=== PATIENT | female | born 1955 | race Caucasian/White ===

== ENCOUNTER 2018-12-15 11:22 | Day surgery (SDC) | payer OTHER, SELFPAY ==
[2017-10-22 10:29] VITALS: BMI 29.5
--- NOTE | 2018-12-15 | BRBX_PTH ---
PATIENT: QUINTEN VALDIVIA LOC: [facility] [place] U#:[id number] AGE/SX: 63/F ROOM: RE12/15/[address]: Dr. Ada Wright MD : 1955 BED: DIS: 12/15/2018 SPEC #: [id number] RECD: 12/15/18 14:28 STATUS: ARON AUBREE #: [id number] DENISE: 12/15/18 00:[address]: Ada Wright DEPT: SURGICAL PATHOLOGY RECD BY: Hola Pheonix ENTERED: 12/15/18 14:28 SP TYPE: BREAST BX OTHR DR: Dr. Heather Gdodard MD Tissues: Right breast, NOS Procedures: Surgery Specimen Level V HEADER OPERATION: Right breast biopsy PRE-OP DIAGNOSIS: Atypical ductal hyperplasia right breast TISSUE SUBMITTED: Lower outer breast tissue MICROSCOPIC DIAGNOSIS Right breast, lower outer breast tissue, excisional biopsy: Atypical ductal hyperplasia, 0.25 cm, entirely excised. Granulation tissue and fat necrosis, compatible with previous biopsy site. Background fibrocystic changes encompassing usual ductal hyperplasia, columnar cell alteration, duct ectasia and stromal sclerosis. CE:chidi 12/17/18 COMMENT Case has been reviewed in consultation with Dr. Monroy who concurs with the above diagnosis. IDC:AM MICROSCOPIC DESCRIPTION Slides are reviewed. GROSS DESCRIPTION Received in fixative is one container labeled with the patient's name and designated lower outer right breast tissue. The specimen consists of an irregular fragment of harris-yellow fibrofatty tissue measuring 4.5 x 4 x 2.5 cm and containing a metallic wire. No orientation is provided. The specimen is inked and serially sectioned to reveal homogenous yellow cut surfaces. No mass lesions are identified. The specimen is serially sectioned and totally submitted in six cassettes. / AM:chidi 12/16/18 TC:4 CPT: 27487
--- NOTE | 2018-12-15 10:43 | PCM.HP.BLA ---
History and Physical Date of Admission: 12/15/18 Fela Jones 1955 REFERRING PHYSICIAN: Heather Goddard MD CHIEF COMPLAINT: Mammogram Abnormality HPI: The patient is a 63 year old female presents with abnormal right breast ultrasound Denies palpable breast masses. Denies nipple discharge. Denies previous breast surgeries. US right breast 11/19/18 6 mm oval equal density asymmetry in the right breast at 9:00, 3 cm from nipple, anterior depth, is suspicious of malignancy. An ultrasound guided biopsy is recommended. No breast or ovarian cancer known in family. Denies breast pain. US guided needle core breast biopsy 11/28/18 - focal atypical ductal hyperplasia PAST MEDICAL HISTORY ? BENIGN MARIA LUISA SKIN LEG 09/03/2006 ? BENIGN NEOPLASM LG BOWEL 10/18/2008 ? Benign neoplasm of colon ? CHR SOLAR SKIN DAMAGE NOS 09/03/2006 ? External hemorrhoids without mention of complication ? Internal hemorrhoids without mention of complication ? Irritable bowel syndrome ? Mental disorder anxiety ? Personal history of colonic polyps ? Pyoderma, unspecified 12/09/2006 ? Snoring ? Unspecified asthma(493.90) mild, intermittent PAST SURGICAL HISTORY ? COLONOS W/REM POLYP SNARE 10/18/08 ? COLONOSCOP W/ OR W/O BRSH SPEC 04/24/2017 ? COLONOSCOPY W/BX 03/19/12 ? HYSTEROSCOPY DIAGNOSTIC 10/22/2017 ? PAST SURGICAL HISTORY OF 09/23 mole removed right thigh Dr. Magana Current Outpatient Prescriptions: diazePAM (VALIUM) 5 mg tablet Take 1 tablet by mouth every 6 hours as needed for Sedation (take 1-2 tablets about one hour prior to the procedure) for up to 1 day. lfokjcef-lgdnogkip-emrakidhpxsenp (CORTISPORIN) otic solution Use 3 Drops in both ears three times daily. 3 drops in both ears 4 times a day as needed albuterol HFA (VENTOLIN HFA) 90 mcg/actuation inhaler Inhale 2 Puffs as instructed every 4 hours as needed for Wheezing/Shortness of Breath. multivitamin (DAILY MULTI-VITAMIN) tablet Take 1 tablet by mouth once daily. CALCIUM CARBONATE/VITAMIN D3 (CALCIUM + D ORAL) Take by mouth once daily. aspirin, enteric coated (ASPIRIN LOW DOSE) 81 mg EC tablet Take 81 mg by mouth once daily. ALLERGIES: Patient has no known allergies. PERSONAL HISTORY: Social History Marital status: Spouse name: Arnulfo Years of education: Number of children: 2 Occupational History Occupation Employer [employer] Social History Main Topics Smoking status: Never Smoker Smokeless tobacco: Never Used Alcohol use: No Drug use: No Sexual activity: Yes Partners with: Male Social History Narrative , 2 boys Lives in [facility], second graders FAMILY HISTORY: ? Diabetes Mother diet controlled ? Heart Father ? Heart Brother Brother diagnosed with colon cancer in his mid 50s REVIEW OF SYSTEMS: General: The patient denies fatigue, denies weight loss, NOTES weight gain, denies feeling hot, and denies feelings of cold. Eyes: The patient NOTES glaucoma, denies eye injury/surgery, wears glasses or contacts. Ear/Nose/Throat: The patient NOTES allergies, denies hayfever, NOTES ear infections, and denies bloody noses. Cardiovascular: The patient denies chest pain, denies heart disease, denies high blood pressure,denies cardiac stent, denies prior heart attack, denies irregular heart beat, NOTES high cholesterol, denies poor circulation, denies heart failure, other cardiac issues, denies claudication, denies cold feet, denies peripheral arterial stent. Respiratory: The patient denies tuberculosis, denies pneumonia, denies frequent cough, denies pulmonary embolism, denies shortness of breath, and denies coughing up blood. Gastrointestinal: had colonoscopy 04/24/17 for family history of colon cancer - tubular adenomas x 2 - needs colonoscopy in 5 y, denies blood in stools Kidney/Bladder: The patient NOTES kidney stones, denies urine infections, and denies bloody urine. Skin: The patient denies a history of skin cancer, denies bleeding/changing moles, and denies a history of skin rash. Neurologic: The patient denies a history of epilepsy/convulsions, denies headaches, denies head/spinal injuries, and denies stroke/TIA. Psychiatric: The patient denies psychiatric medications, denies depression, and denies voices, denies substance abuse. Endocrine: The patient denies thyroid disorders, denies diabetes, and denies hormonal problems. Hematologic: The patient denies a history of bruising, denies bleeding, and denies anemia, denies blood clots. Infections: The patient denies a history of measles and mumps, denies rheumatic fever, and denies sexually transmitted diseases. Musculoskeletal: The patient denies back pain/injury, denies back problems, denies sciatica, denies knee/foot trouble, denies arthritis, or denies gout. Obstetrical: menarche age 13, , first age 31, breast feeding 1 year, BCP use initially age 28 for 2 1/2 y, menopause age 52 PHYSICAL EXAMINATION: General: The patient is 63 year old female, well nourished, well hydrated in no acute distress. The patient is oriented to time, place, and person. VITALS: Blood pressure 148/82, pulse 84, weight 77.1 kg (170 lb). Body mass index is 28.73 kg/m?. Head ? Normocephalic. EOM intact with sclera clear and no icterus noted. Wearing glasses. Mouth with mucus membranes moist. Neck - supple with no jugular venous distention noted. Trachea is midline. No carotid bruits noted. No thyroid enlargement or thyroid nodules detected. No masses noted. Chest/breast ? no asymmetry of breasts noted, no suspicious skin lesions noted, no nipple discharge and both nipples everted, no breast masses noted, nodular, dense breast tissue palpated bilaterally, no suspicious lesions palpated Lungs ? clear to auscultation. Normal breath sounds. No rales/rhonchi/wheezing noted. No labored breathing noted, such as retractions. Heart ? normal S1 and S2 auscultated. No rubs/clicks/murmurs noted. Regular rate. Abdomen ? soft and benign. Normal bowel sounds. No abdominal bruits noted. No distention or tympany noted. No masses noted. Extremities ? no calf tenderness noted. No pitting edema noted. Skin ? normal skin integrity. Lymph ? no cervical adenopathy detected, no supraclavicular adenopathy detected, no axillary adenopathy detected Neurological ? cranial nerves II-XII intact. Normal motor strength in arms and legs. No localized numbness detected. Psych ? calm and appropriate RADIOLOGIC STUDIES: As Noted IMPRESSION: right breast - atypical ductal hyperplasia PLAN: I have discussed the above with the patient. I have offered right breast biopsy via wire localization - for wider local excision given findings of atypical ductal hyperplasia. I have explained the procedure to the patient. I have counseled the patient as to the risks of the procedure, including but not limited to: infection, bleeding, injury to any blood vessels/nerves, scar tissue, wound infections, complications of anesthesia, etc. ? the patient understands. The patient wishes to proceed. Patient wishes angiolytic prior to procedure - will prescribe valium I have answered all questions to the patient?s satisfaction and the patient has no further questions.. Return to Clinic: The patient is instructed to follow-up with me after the procedure.
--- NOTE | 2018-12-15 10:47 | BI_ITS ---
SURGICAL BREAST SPECIMEN RADIOGRAPH CLINICAL: Document presence of mass in biopsy specimen. FINDINGS: Specimen shows presence of mass. Electronically Signed: Don Parker MD at 8:30 EST , Service support , BI/Breast Biopsy Specimen
[2018-12-15 11:57] VITALS: BP 173/76; PULSE 93; RESP 14; TEMP 37.5; O2SAT 97; BMI 28.1
[2018-12-15] MEDS: Cefazolin 2 GM in 0.9% Normal Saline 100 ML IV (13:30)
--- NOTE | 2018-12-15 13:34 | OP.PN_ITS ---
Immediate Post-Op Note Date of Procedure: 12/15/18 Primary Surgeon/Physician: Ada Wright MD fibreglass lay up worker: NOT,DEFINED Pre-Operative Diagnosis: atypical ductal hyperplasia of right breast Post-Operative Diagnosis: same Surgery/Procedure Performed:: wide local excision right breast biopsy via wire localization Description of Surgical Findings:: specimen mammograms - lower outer breast tissue - marker clip in specimen Estimated Blood Loss: minimal Specimen's removed: lower outer breast tissue Type of Anesthesia:: Local MAC ASA Class: ASA2 Mod Systematic Disease - Admit VTE Documentation VTE Present on Admission: Yes VTE Mechan Device Prophylaxis: SCD's
--- NOTE | 2018-12-15 13:35 | PCM.DC.BS ---
Discharge Diet: No Restrictions Discharge Activity: Return to Normal Activity, May not drive while taking narcotic pain medications. Lifting Restrictions: no lifting with right arm greater than 5 pounds for two weeks Call your doctor if your incision/area has: Continuous Slow Oozing, Foul Smelling Discharge Call your doctor if you observe: Fever of 101 or Higher Additional Dressing/Incision Instructions:: Leave dressing in place. May get wet in shower. Do not soak - no tub baths/swimming Additional Instructions: Recommended pain medication regimen: take 600 mg ibuprofen then in three hours can take 650 mg acetaminophen, then in 3 hours can take 600 mg ibuprofen and so on for a few days take narcotic medications for breakthrough pain and and at night to help you sleep Wear supportive bra during the day May apply ice to area for comfort Allergies/Adverse Reactions: Allergies No Known Allergies Allergy (Verified 12/12/18 14:05) Medications to take at Discharge Albuterol Inhaler [Ventolin Hfa (SP)] 2 puff INHALATION Q6H PRN PRN 10/22/17 Neomycin Sulfate/Polymyxin/Hc [Otocort Soln (SPC)] 4 drop OTIC Q8H 10/22/17 Diazepam [Valium] 5 mg PO Q6H PRN PRN 12/15/18 Oxycodone [Oxyir] 5 mg PO Q8H PRN PRN 4 Days #12 tab 12/15/18 The following prescriptions were given: Oxycodone [Oxyir] 5 mg PO Q8H PRN PRN 4 Days #12 tab PRN Reason: Mod-Severe Pain (-08/27) Primary Care Physician: Heather Goddard MD [Primary Care Provider] - Please Follow Up With: Ada Wright MD - call When: to be see in 7-10 days, please call for date and time, thank you
[2018-12-15] MEDS: Bupiv/Epi 0.5% Mpf 30 ML Vial (13:45)
--- NOTE | 2018-12-15 14:09 | PCM.OPRPT ---
Report of Operation Date of Procedure: 12/15/18 Pre-Operative Diagnosis: atypical ductal hyperplasia of right breast Post-Operative Diagnosis: same Surgery/Procedure Performed:: wide local excision right breast biopsy via wire localization Description of Surgical Findings:: specimen mammograms - lower outer breast tissue - marker clip in specimen wick and base assembler: NOT,DEFINED Type of Anesthesia:: Local MAC Anesthesiologist: Indu Kahn Specimen's removed: lower outer breast tissue Estimated Blood Loss (mL): minimal Fluids Replaced: 800 ml RL Description of Procedure: After informed consent was given, the patient was brought into the Breast Stereotactic Radiology suite. Appropriate time out protocol was followed. She was placed in the prone position on the [place] stereotactic table. The patient?s right breast was placed in the opening at the head of the table. A senior branch manager compression mammogram was then obtained in the lateral view. The marker clip that was previously placed was identified. Stereo pictures of the lesion were then taken for XYZ coordinates. The Kopans needle was then positioned where it would be entering into the patient?s breast. The skin at this site was then cleansed with a surgical skin preparation. The skin and subcutaneous tissues at this site were then infiltrated with 1% xylocaine. The Kopans needle was then positioned into the patient?s breast at the proper coordinates of depth. A senior branch manager film was obtained which revealed the wire in proper position. The patient was then placed in the supine position and the wire was taped into place. A unilateral mammogram in the CC and MLO view were then taken for use in the OR. The patient tolerated this portion of the procedure well and was brought to the AC awaiting surgery in the OR. The patient was then brought to the Operating Room and placed on the operating table in the supine position. A wire had already been placed in the stereotactic biopsy room in the radiology department as described above. The right breast with the wire in placed was then prepped with a sterile surgical skin preparation and sterile surgical drapes were placed. The skin and subcutaneous tissues at the site of the breast lesion was then infiltrated with 1% xylocaine with epinephrine. A transverse skin incision was then made with a 15 blade scalpel in the lower outer quadrant of the right breast and carried down through to the subcutaneous tissues. Hemostasis was controlled with electrocautery. The wire was then palpated out and brought into the wound from outside. The breast tissue surrounding the wire was then carefully palpated out and from the surrounding tissues using electrocautery. The breast tissue, once from the breast, was then forwarded to the radiology department, where a specimen mammogram revealed that the marker clip was within the specimen. The breast tissue was then forwarded to pathology for analysis. No further suspicious tissue was palpated or visualized. Hemostasis was carefully controlled with electrocautery. The subdermal tissues were then approximated with vicryl suture. The incision was then reapproximated close using running monocryl suture. Cavilon and steristrips were then placed to reinforce the skin closure. A sterile dressing was then applied. The patient was then brought to the Recovery Room in stable condition. - Complications none noted - Admit VTE Documentation VTE Present on Admission: Yes VTE Mechan Device Prophylaxis: SCD's
[2018-12-15 14:15] VITALS: BP 109/67; BP 173/76; PULSE 79; RESP 18; TEMP 36.1; O2SAT 95
[2018-12-15 14:20] VITALS: BP 120/71; BP 173/76; PULSE 78; RESP 18; O2SAT 96
[2018-12-15 14:25] VITALS: BP 117/68; BP 173/76; PULSE 72; RESP 18; O2SAT 98
[2018-12-15 14:30] VITALS: BP 115/76; BP 173/76; PULSE 71; RESP 18; TEMP 36.2; O2SAT 98
[2018-12-15 15:28] VITALS: BP 111/70; BP 173/76; PULSE 76; RESP 16; TEMP 37.3; O2SAT 95
== END 2018-12-15 16:07 | disposition home or self-care (01) ==
LOC: SDC 11:23 → AC 11:27
PROVIDERS: Family Provider Internal Medicine; PCP Internal Medicine; Referring Provider Surgery; Visit Provider Surgery
PROC: (CPT 19125; principal; 2018-12-15 13:45)
DX: N60.91 Unspecified benign mammary dysplasia of right breast (principal); N60.11 Diffuse cystic mastopathy of right breast; N60.41 Mammary duct ectasia of right breast; F41.9 Anxiety disorder, unspecified; J45.20 Mild intermittent asthma, uncomplicated; Z79.51 Long term (current) use of inhaled steroids; Z79.82 Long term (current) use of aspirin; Z79.899 Other long term (current) drug therapy; Z87.442 Personal history of urinary calculi
CPT/HCPCS: 00400; 19125; 19281; 76098; 88305; 88307; J7050; J7120

== ENCOUNTER → 2020-01-12 16:41 | Outpatient (CLI) | payer OTHER, SELFPAY ==
--- NOTE | 2020-01-12 16:49 | CT_ITS ---
STUDY: CT MAXILLOFACIAL SINUSES REASON FOR EXAM: Female, 64 years old. POLYP-RT, NO PREV SURG OR MED HX -- CHANDRIKA PROTOCOL RADIATION DOSAGE (If Supplied By Facility): CTDIvol = ( 33.06 ) mGy, DLP = ( 804.92 ) mGycm CLINICAL HISTORY: 64 years Female, POLYP-RT, NO PREV SURG OR MED HX -- CHANDRIKA PROTOCOL COMPARISON: None. TECHNIQUE: A CT scan of the sinuses was performed in axial plane with coronal and sagittal reconstruction This exam was performed according to our departmental dose-optimization program, which includes automated exposure control, adjustment of the mA and/or kV according to patient size and/or use of iterative reconstruction technique. FINDINGS: The frontal sinuses appear to be normal. Some mild mucoperiosteal reaction is noted in the left ethmoid sinus. The frontal ethmoidal recess and maxillary infundibula are patent and normal. There are 1 cm mucous retention cyst seen in the floor of the maxillary sinuses bilaterally. Right frontoethmoidal recess appears patent but the left frontal ethmoidal recess appears partially occluded by low-grade ethmoid sinusitis. The sphenoid sinus appears to be normal. The sphenopalatine foramen and pterygopalatine fossa. A normal bilaterally. The mastoid air cells are normal. The heart appears in the auditory ossicles and tegmen tympani are all intact. CT/Sinus/Facial Bone IMPRESSION: Low-grade left ethmoid sinusitis with 1 cm bilateral mucous retention cysts in the floor and maxillary sinuses bilaterally. Electronically Signed: Derek Miner, at 12:54 EST Tel , Service support ,
== END ==
PROVIDERS: PCP Internal Medicine; Referring Provider Otolaryngology; Visit Provider Otolaryngology
DX: J33.9 Nasal polyp, unspecified (principal)
CPT/HCPCS: 70486